=== PATIENT | male | born 1980 | race Caucasian/White ===

== ENCOUNTER 2017-10-18 11:47 | Emergency (ER) | payer BC ==
--- NOTE | 2017-10-18 13:40 | RAD ---
HISTORY: Pneumonia COMPARISONS: None VIEWS: 4: Frontal dual-energy and lateral views of the chest. FINDINGS: CARDIOMEDIASTINAL SILHOUETTE: The cardiomediastinal silhouette is normal. AWA: The awa are normal. PLEURA: The costophrenic angles are sharp. No pleural abnormalities are noted. LUNG PARENCHYMA: There is hyperinflation with flattening of the diaphragm and expansion of the AP diameter of the chest. ABDOMEN: The upper abdomen is clear. There is no subphrenic gas. BONES AND SOFT TISSUES: No bone or soft tissue abnormalities are noted. OTHER: None. IMPRESSION: HYPERINFLATION, WHICH CAN BE SEEN WITH COPD OR REACTIVE AIRWAY DISEASE . NO ACTIVE CARDIOPULMONARY DISEASE.
[2017-10-18 13:47] LABS: ABS Basophils 0.1 10^3/ul (0-0.2); ABS Eosinophils 0.1 10^3/ul (0-0.6); ABS Lymphocytes 1.2 10^3/ul (1.0-4.8); ABS Monocytes 0.6 10^3/ul (0-0.8); ABS Neutrophils 3.2 10^3/ul (1.5-7.7); ABS Nucleated RBC 0 10^3/ul; Eosinophil % 1.6 % (0-6); Hematocrit 44 % (42-52); Hemoglobin 15.3 g/dl (14.0-18.0); Lymphocyte % 23.9 % (25-47); Mean Corpuscular HGB Conc 35 g/dl (31-36); Mean Corpuscular Hemoglobin 30 pg (27-31); Mean Corpuscular Volume 87 fL (80-94); Mean Platelet Volume 7.9 um3 (7.4-10.4); Nucleated Red Blood Cells % 0.1; Platelet Count 326 10^3/ul (150-450); Red Blood Count 5.05 10^6/ul (4.0-5.4); Red Cell Distribution Width 13 % (10.5-15); White Blood Count 5.2 10^3/ul (3.5-10.8)
[2017-10-18 14:02] LABS: EGFR Non-African American 76.9 (>60)
[2017-10-18 14:52] LABS: Urine Appearance Clear; Urine Blood Negative (Negative); Urine Color Yellow; Urine Ketones Negative (Negative); Urine Protein Negative (Negative); Urine Specific Gravity 1.009 (1.010-1.030); Urine Urobilinogen Negative (Negative)
[2017-10-18 15:15] VITALS: BP 141/92
--- NOTE | 2017-10-18 16:05 | ED ---
Shortness of Breath - HPI Summary HPI Summary: Patient is a 37-year-old male presenting to the ED with a chief complaint of shortness of breath. He was seen at [facility] several weeks ago for same, chest x-ray obtained and blood work and he was placed on antibiotics, Augmentin. He was subsequently seen in his primary's office and given 10 days Levaquin for a right middle lobe pneumonia. He states he feels like he is getting worse instead of better. He denies any fevers, sweats, chills. He denies any chest pain or pressure. Denies any nausea, vomiting, diarrhea. He has been otherwise well. He does have a history of anxiety and states he has been under more stress recently with moving back to [place]. He takes no medications. Shortness of breath symptoms are worse with exertion, better with rest. 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 Onset/Duration: Gradual Onset Timing: Constant Current Severity: Mild Dyspnea At: Rest Associated Signs & Symptoms: Negative - Allergy/Home Medications Allergies/Adverse Reactions: Allergies Allergy/AdvReac Type Severity Reaction Status Date / Time No Known Allergies Allergy Verified 10/18/17 11:59 Home Medications: Home Medications Levofloxacin TAB* [Levaquin TAB*] 500 mg PO DAILY 10/18/17 [History Confirmed ] Losartan Potassium [Cozaar] 50 mg PO DAILY 10/18/17 [History Confirmed 10/18/17] PMH/Surg Hx/FS Hx/Imm Hx Previously Healthy: Yes Cardiovascular History: Reports: Hx Hypertension - Immunization History Hx Pertussis Vaccination: No Immunizations Up to Date: Unable to Obtain/Confirm Infectious Disease History: No Infectious Disease History: Denies: Traveled Outside the US in Last 30 Days - Social History Occupation: Employed Full-time Lives: With Family Alcohol Use: None Alcohol Amount: 6 pack daily Hx Substance Use: Yes Substance Use Type: Reports: Marijuana Substance Use Comment - Amount & Last Used: seldom Hx Tobacco Use: Yes Smoking Status (MU): Former Smoker Review of Systems Constitutional: Negative Negative: Fever, Chills, Fatigue, Skin Diaphoresis Eyes: Negative Negative: Palpitations, Chest Pain Positive: Shortness Of Breath. Negative: Cough Negative: Abdominal Pain, Vomiting, Diarrhea, Nausea Genitourinary: Negative Positive: no symptoms reported, see HPI Musculoskeletal: Negative Skin: Negative Positive: Anxious All Other Systems Reviewed And Are Negative: Yes Physical Exam Triage Information Reviewed: Yes Vital Signs On Initial Exam: Initial Vitals Temp Pulse Resp BP Pulse Ox 98.7 F 68 16 126/70 97 10/18/17 11:55 10/18/17 11:55 10/18/17 11:55 10/18/17 11:55 10/18/17 11:55 Vital Signs Reviewed: Yes Appearance: Positive: Well-Appearing, Well-Nourished Skin: Positive: Warm, Skin Color Reflects Adequate Perfusion Head/Face: Positive: Normal Head/Face Inspection Eyes: Positive: EOMI, BENJI, Conjunctiva Clear Neck: Positive: Supple, No Lymphadenopathy Respiratory/Lung Sounds: Positive: Clear to Auscultation, Breath Sounds Present Cardiovascular: Positive: RRR, Pulses are Symmetrical in both Upper and Lower Extremities Musculoskeletal: Positive: Normal, Strength/ROM Intact Neurological: Positive: Speech Normal Psychiatric: Positive: Normal, Affect/Mood Appropriate Diagnostics - Vital Signs Vital Signs Temp Pulse Resp BP Pulse Ox 10/18/17 15:13 98.2 F 58 18 141/92 97 10/18/17 14:00 66 12 98 10/18/17 13:19 68 136/83 10/18/17 13:17 67 22 127/77 100 10/18/17 13:16 64 133/83 99 10/18/17 13:15 64 99 10/18/17 13:14 71 136/83 98 10/18/17 11:55 98.7 F 68 16 126/70 97 - Laboratory Lab Results: Lab Results 10/18/17 10/18/17 10/18/17 Range/Units 13:11 13:35 13:35 WBC 5.2 (3.5-10.8) 10^3/ul RBC 5.05 (4.0-5.4) 10^6/ul Hgb 15.3 (14.0-18.0) g/dl Hct 44 (42-52) % MCV 87 (80-94) fL MCH 30 (27-31) pg MCHC 35 (31-36) g/dl RDW 13 (10.5-15) % Plt Count 326 (150-450) 10^3/ul MPV 7.9 (7.4-10.4) um3 Neut % (Auto) 61.1 (38-83) % Lymph % (Auto) 23.9 L (25-47) % [place] % (Auto) 11.5 H (0-7) % Eos % (Auto) 1.6 (0-6) % Baso % (Auto) 1.9 (0-2) % Absolute Neuts (auto) 3.2 (1.5-7.7) 10^3/ul Absolute Lymphs (auto) 1.2 (1.0-4.8) 10^3/ul Absolute Monos (auto) 0.6 (0-0.8) 10^3/ul Absolute Eos (auto) 0.1 (0-0.6) 10^3/ul Absolute Basos (auto) 0.1 (0-0.2) 10^3/ul Absolute Nucleated RBC 0 10^3/ul Nucleated RBC % 0.1 Sodium 138 L (139-145) mmol/L Potassium 3.8 (3.5-5.0) mmol/L Chloride 105 (101-111) mmol/L Carbon Dioxide 27 (22-32) mmol/L Anion Gap 6 (2-11) mmol/L BUN 12 (6-24) mg/dL Creatinine 1.07 (0.67-1.17) mg/dL Est GFR ( Amer) 98.9 (>60) Est GFR (Non-Af Amer) 76.9 (>60) BUN/Creatinine Ratio 11.2 (8-20) Glucose 116 H (70-100) mg/dL Lactic Acid (0.5-2.0) mmol/L Calcium 9.7 (8.6-10.3) mg/dL Total Bilirubin 0.80 (0.2-1.0) mg/dL AST 16 (13-39) U/L ALT 22 (7-52) U/L Alkaline Phosphatase 63 (34-104) U/L C-Reactive Protein 5.08 H (< 5.00) mg/L Total Protein 7.3 (6.4-8.9) g/dL Albumin 4.3 (3.2-5.2) g/dL Globulin 3.0 (2-4) g/dL Albumin/Globulin Ratio 1.4 (1-3) Urine Color Urine Appearance Urine pH (5-9) Ur Specific [place] (1.010-1.030) Urine Protein (Negative) Urine Ketones (Negative) Urine Blood (Negative) Urine Nitrate (Negative) Urine Bilirubin (Negative) Urine Urobilinogen (Negative) Ur Leukocyte Esterase (Negative) Urine Glucose (Negative) Influenza A (Rapid) Negative (Negative) Influenza B (Rapid) Negative (Negative) 10/18/17 10/18/17 Range/Units 13:35 14:25 WBC (3.5-10.8) 10^3/ul RBC (4.0-5.4) 10^6/ul Hgb (14.0-18.0) g/dl Hct (42-52) % MCV (80-94) fL MCH (27-31) pg MCHC (31-36) g/dl RDW (10.5-15) % Plt Count (150-450) 10^3/ul MPV (7.4-10.4) um3 Neut % (Auto) (38-83) % Lymph % (Auto) (25-47) % [place] % (Auto) (0-7) % Eos % (Auto) (0-6) % Baso % (Auto) (0-2) % Absolute Neuts (auto) (1.5-7.7) 10^3/ul Absolute Lymphs (auto) (1.0-4.8) 10^3/ul Absolute Monos (auto) (0-0.8) 10^3/ul Absolute Eos (auto) (0-0.6) 10^3/ul Absolute Basos (auto) (0-0.2) 10^3/ul Absolute Nucleated RBC 10^3/ul Nucleated RBC % Sodium (139-145) mmol/L Potassium (3.5-5.0) mmol/L Chloride (101-111) mmol/L Carbon Dioxide (22-32) mmol/L Anion Gap (2-11) mmol/L BUN (6-24) mg/dL Creatinine (0.67-1.17) mg/dL Est GFR ( Amer) (>60) Est GFR (Non-Af Amer) (>60) BUN/Creatinine Ratio (8-20) Glucose (70-100) mg/dL Lactic Acid 1.1 (0.5-2.0) mmol/L Calcium (8.6-10.3) mg/dL Total Bilirubin (0.2-1.0) mg/dL AST (13-39) U/L ALT (7-52) U/L Alkaline Phosphatase (34-104) U/L C-Reactive Protein (< 5.00) mg/L Total Protein (6.4-8.9) g/dL Albumin (3.2-5.2) g/dL Globulin (2-4) g/dL Albumin/Globulin Ratio (1-3) Urine Color Yellow Urine Appearance Clear Urine pH 6.0 (5-9) Ur Specific [place] 1.009 L (1.010-1.030) Urine Protein Negative (Negative) Urine Ketones Negative (Negative) Urine Blood Negative (Negative) Urine Nitrate Negative (Negative) Urine Bilirubin Negative (Negative) Urine Urobilinogen Negative (Negative) Ur Leukocyte Esterase Negative (Negative) Urine Glucose Negative (Negative) Influenza A (Rapid) (Negative) Influenza B (Rapid) (Negative) Result Diagrams: 10/18/17 13:35 10/18/17 13:35 Lab Statement: Any lab studies that have been ordered have been reviewed, and results considered in the medical decision making process. Course/Dx - Course Course Of Treatment: The patient is evaluated for shortness of breath. EKG obtained which shows no acute findings. Labs obtained which are unremarkable. Chest x-ray shows: IMPRESSION: HYPERINFLATION, WHICH CAN BE SEEN WITH COPD OR REACTIVE AIRWAY DISEASE . NO ACTIVE. CARDIOPULMONARY DISEASE. I discussed these findings with the patient. He is still concerned over pneumonia. I have showed the patient his x-ray and explained symptoms of pneumonia. He denies any cough with sputum production, fever. He states he believes his shortness of breath may be due to anxiety. I have also discussed asthma symptoms with him. I have prescribed him an albuterol inhaler. He will follow up with Dr. Bernstein to further evaluate the hyperinflation possible reactive airway disease. He has never been diagnosed with such before. He is okay for discharge at this time and has no other concerns. - Diagnoses Differential Diagnosis/HQI/PQRI: Positive: Asthma, Chest Wall Pain Provider Diagnoses: Shortness of breath Discharge - Sign-Out/Discharge Documenting (check all that apply): Discharge/Admit/Transfer - Discharge Plan Condition: Stable Disposition: HOME Patient Education Materials: Asthma (ED), Anxiety (ED) Referrals: Jenn ARENAS,Suki [Primary Care Provider] - Mónica Bernstein MD [Medical Doctor] - Additional Instructions: M not diagnosing E with asthma by have given you information for such Albuterol inhaler 1 puff up to every 4 hours as needed for shortness of breath For any worsening symptoms, he may return to the ED Follow-up with Dr. Bernstein - Billing Disposition and Condition Condition: STABLE Disposition: HOME
== END 2017-10-18 15:13 | disposition home or self-care (01) ==
LOC: ED 11:47
DX: R06.02 Shortness of breath (principal); F41.9 Anxiety disorder, unspecified; Z87.891 Personal history of nicotine dependence
CPT/HCPCS: 36415; 71046; 80053; 81003; 83605; 85025; 86140; 87502; 99282

== ENCOUNTER 2018-01-14 14:34 | Emergency (ER) | payer BC ==
[2018-01-14 14:52] VITALS: BP 134/84
--- NOTE | 2018-01-14 15:30 | UC ---
Skin Complaint HPI - HPI Summary HPI Summary: left foot pain x 2 weeks ? foreign body plantar left foot + pain / swelling, , no redness - History of Current Complaint Chief Complaint: UCLowerExtremity Time Seen by Provider: 01/14/18 14:53 Stated Complaint: LEFT FOOT COMPLAINT Hx Obtained From: Patient Onset/Duration: Gradual Onset, Lasting Weeks - 2, Still Present Timing: Constant Onset Severity: Moderate Current Severity: Moderate Pain Intensity: 0 Location: Discrete - plantar left foot Character: Swelling, Pain, Painful Aggravating Factor(s): Touch Alleviating Factor(s): Nothing Associated Signs & Symptoms: Positive: Tenderness Related History: Foreign Body - ? stepped on rocks 2 weeks ago - Allergy/Home Medications Allergies/Adverse Reactions: Allergies Allergy/AdvReac Type Severity Reaction Status Date / Time No Known Allergies Allergy Verified 01/14/18 14:49 Review of Systems Constitutional: Negative Skin: Negative Eyes: Negative ENT: Negative Respiratory: Negative Cardiovascular: Negative Gastrointestinal: Negative Genitourinary: Negative Motor: Negative Neurovascular: Negative Musculoskeletal: Negative Neurological: Negative Psychological: Negative Is Patient Immunocompromised?: No All Other Systems Reviewed And Are Negative: Yes PMH/Surg Hx/FS Hx/Imm Hx Previously Healthy: Yes - Surgical History Surgical History: None - Family History Known Family History: Negative: Diabetes - Social History Alcohol Use: Daily Alcohol Amount: 6 pack daily Substance Use Type: None Substance Use Comment - Amount & Last Used: seldom Smoking Status (MU): Former Smoker Physical Exam Triage Information Reviewed: Yes Appearance: Well-Appearing, No Pain Distress, Well-Nourished Vital Signs: Initial Vital Signs Temp 98.7 F 01/14/18 14:45 Pulse 77 01/14/18 14:45 Resp 14 01/14/18 14:45 BP 134/84 01/14/18 14:45 Pulse Ox 98 01/14/18 14:45 Vital Signs Reviewed: Yes Eyes: Positive: Conjunctiva Clear ENT: Positive: Normal ENT inspection, Hearing grossly normal, Pharynx normal Neck exam: Normal Neck: Positive: Supple Respiratory: Positive: Chest non-tender, Lungs clear, Normal breath sounds Cardiovascular: Positive: RRR, No Murmur, Pulses Normal Skin: Positive: Other - plantar left foot: small lesion , swellen , tender , no foreign body noted/ found after pealing the calus and the skin Course/Dx - Diagnoses Provider Diagnoses: left plantar foot pain Discharge - Sign-Out/Discharge Documenting (check all that apply): Patient Departure - Discharge Plan Condition: Stable Disposition: HOME Patient Education Materials: Soft Tissue Foreign Body (ED) Referrals: Kiera Trejo MD [Primary Care Provider] - 5 Days Additional Instructions: could not feel / or find any foreign body in your foot at this time please use warm water soaks follow up in 5 days if not better - Billing Disposition and Condition Condition: STABLE Disposition: Home
== END 2018-01-14 15:26 | disposition home or self-care (01) ==
LOC: UCCORT 14:34
DX: M79.672 Pain in left foot (principal); Z87.891 Personal history of nicotine dependence
CPT/HCPCS: 99211; G0463

== ENCOUNTER 2018-06-04 12:36 | Emergency (ER) | payer BC ==
[2018-06-04] MEDS ORDERED: NS 0.9% 1000 ML* 1,000 ML IV ONE (13:05)
[2018-06-04] MEDS ORDERED: Ondansetron INJ* 2 MG/ML VIAL IV ONE (13:05)
[2018-06-04] MEDS ORDERED: Ketorolac INJ* 30 MG/ML 1 ML VIAL IV PUSH ONE (13:05)
--- NOTE | 2018-06-04 13:05 | ED ---
Back Pain - HPI Summary HPI Summary: A 38 y/o presents to the ED c/o back pain radiating to his right flank. Currently, the patient is still experiencing the pain reaching 5/10 in severity , at its worst 7/10 in severity. In the ED room, the patient has a pulse of 85 BPM, O2 saturation of 96%, and blood pressure of 148/98. As per triage, "right flank pain radiating into RUQ. denies N/V/D/constipation/problems urinating. currently on abx course for lymes. no history of kidney stones/infections". According to the patient, the pain initially started in his back. The back pain was throbbing and intermittent. Now, the pain is radiating to his right flank. He noted that the pain worsens with position and movement. Additionally symptoms include appetite changes, denies any burning or blood in urine. PMHx of Lyme Disease (currently treated with Doxycycline), denies cholecystectomy and history of thrombosis. Patient does fly often. He just got back from [place]. - History of Current Complaint Chief Complaint: EDFlankPain Stated Complaint: RT FLANK PAIN Time Seen by Provider: 06/04/18 12:48 Hx Obtained From: Patient Onset/Duration: Sudden Onset, Lasting Days, Still Present, Worse Since Onset/Duration: Started Days Ago, Still Present Timing: Intermittent Severity Initially: Moderate Severity Currently: Moderate Pain Intensity: 5 Pain Scale Used: 0-10 Numeric Character: Throbbing Aggravating Symptom(s): Movement Alleviating Symptom(s): Nothing Associated Signs And Symptoms: Positive: Flank Pain - Allergies/Home Medications Allergies/Adverse Reactions: Allergies Allergy/AdvReac Type Severity Reaction Status Date / Time No Known Allergies Allergy Verified 06/04/18 12:41 Home Medications: Home Medications Doxycycline Monohydrate 100 mg PO BID 06/04/18 [History Confirmed 06/04/18] PMH/Surg Hx/FS Hx/Imm Hx Cardiovascular History: Reports: Hx Hypertension Respiratory History: Denies: Hx Asthma - Surgical History Surgery Procedure, Year, and Place: NO PRIOR SURGERIES NOTED. Infectious Disease History: No Infectious Disease History: Reports: Traveled Outside the [place] in Last 30 Days - [place] - Family History Known Family History: Negative: Diabetes - Social History Alcohol Use: Daily Alcohol Amount: 6 pack daily Hx Substance Use: Yes Substance Use Type: Reports: None Substance Use Comment - Amount & Last Used: seldom Hx Tobacco Use: Yes Smoking Status (MU): Former Smoker Review of Systems Negative: Fever Positive: flank pain. Negative: burning, hematuria Positive: Other - POSITIVE: Back pain All Other Systems Reviewed And Are Negative: Yes Physical Exam - Summary Physical Exam Summary: GENERAL: Patient is a well-developed and nourished male who is lying comfortable in the stretcher. Patient is not in any acute respiratory distress. HEAD AND FACE: Normocephalic EYES: PERRLA, EOMI x 2. EARS: Hearing grossly intact. MOUTH: Oropharynx within normal limits. NECK: Supple, trachea is midline, no adenopathy, no JVD, no carotid bruit. CHEST: Symmetric, no tenderness at palpation LUNGS: Clear to auscultation bilaterally. No wheezing or crackles. CVS: Regular rate and rhythm, S1 and S2 present, no murmurs or gallops appreciated. ABDOMEN: Soft, mildly tender to palpation in RUQ. Bowel sounds are normal. No abdominal abnormal pulsations. EXTREMITIES: Full ROM in all major joints, no edema, no cyanosis or clubbing. NEURO: Alert and oriented x 3. No acute neurological deficits. Speech is normal and follows commands. SKIN: Dry and warm Triage Information Reviewed: Yes Vital Signs On Initial Exam: Initial Vitals Temp Pulse Resp BP Pulse Ox 98 F 78 16 158/101 97 06/04/18 12:38 06/04/18 12:38 06/04/18 12:38 06/04/18 12:38 06/04/18 12:38 Vital Signs Reviewed: Yes Diagnostics - Vital Signs Vital Signs Temp Pulse Resp BP Pulse Ox 06/04/18 12:38 98 F 78 16 158/101 97 - Laboratory Result Diagrams: 06/04/18 13:23 06/04/18 13:23 Lab Statement: Any lab studies that have been ordered have been reviewed, and results considered in the medical decision making process. - Ultrasound No standard instances Ultrasound Interpretation Completed By: Radiologist - GALLBLADDER US: NO SONOGRAPHIC EVIDENCE OF CHOLELITHIASIS OR ACUTE INFLAMMATORY CHANGES OF THE GALLBLADDER. BOWEL GAS SHADOWING THE COMMON BILE DUCT PREVENTS DETERMINATION OF THE COMMON BILE DUCT DIAMETER. ED PHYSICIAN REVIEWED THIS RADIOLOGY REPORT. Re-Evaluation - Re-Evaluation First Eval Re-Evaluation Time: 16:21 Change: Improved Comment: PATIENT STATED THAT TORADOL HELPED BUT STILL FEELING THE SAME DULL PAIN. Back Pain Course/Dx - Course Course Of Treatment: A 38 y/o presents to the ED c/o back pain radiating to his right flank. Currently, the patient is still experiencing the pain reaching 5/ 10 in severity, at its worst 7/10 in severity. In the ED room, the patient has a pulse of 85 BPM, O2 saturation of 96%, and blood pressure of 148/98. According to the patient, the pain initially started in his back. The back pain was throbbing and intermittent. Now, the pain is radiating to his right flank. He noted that the pain worsens with position and movement. Additionally symptoms include appetite changes, denies any burning or blood in urine. PMHx of Lyme Disease (currently treated with Doxycycline), denies cholecystectomy and history of thrombosis. Patient does fly often. He just got back from [place]. Physical examination revealed mildly tender to palpation in RUQ. A Gallbladder US revealed no sonographic evidence of cholelithiasis or acute inflammatory changes of the gallbladder. Bowel gas shadowing the common bile duct prevents determination of the common bile duct diameter. Hematology and urinalysis were done. Labs were umremarkable. In the ED course, the patient received Maaloz, Toradol, Xylocaine, Zofran, Protonix, and IV fluids. During re- evaluation, the patient noted that the Toradol helps but still experiencing the dull flank pain. Upon a second evaluation, the GI cocktail did make a difference. The patient was told if the pain comes back and becomes unbearable to come back to [facility] for CAT scan. At this point, the CAT scan is unnecessary due to the patient's hematology, urinalysis, and gallbladder ultrasound were within normal limits. Patient will be discharged with a diagnosis of flank pain. Patient is to follow up with primary care provider in 1-3 days. Patient is to return to ED for any new or worsening symptoms. Patient is agreeable with this plan. - Diagnoses Provider Diagnoses: Flank pain Discharge - Sign-Out/Discharge Documenting (check all that apply): Patient Departure - DISCHARGE - Discharge Plan Condition: Stable Disposition: HOME Patient Education Materials: Flank Pain (ED) Referrals: Kiera Trejo MD [Primary Care Provider] - 3 Days Additional Instructions: FOLLOW UP WITH PRIMARY CARE PROVIDER IN 1-3 DAYS. RETURN TO ED FOR ANY NEW OR WORSENING SYMPTOMS. - Billing Disposition and Condition Condition: STABLE Disposition: Home - Attestation Statements Document Initiated by Nakita: Yes Documenting Scribe: Chicho Lopez Provider For Whom Nakita is Documenting (Include Credential): Rashida Mercer MD Scribe Attestation: Chicho Dhaliwal, scribed for Rashida Mercer MD on 06/04/18 at 1809. Scribe Documentation Reviewed: Yes Provider Attestation: The documentation as recorded by the Chicho toro accurately reflects the service I personally performed and the decisions made by , Rashida Mercer MD Status of Scribe Document: Viewed
[2018-06-04 13:31] LABS: ABS Basophils 0 10^3/ul (0-0.2); ABS Eosinophils 0.1 10^3/ul (0-0.6); ABS Lymphocytes 1.1 10^3/ul (1.0-4.8); ABS Monocytes 0.7 10^3/ul (0-0.8); ABS Neutrophils 4.1 10^3/ul (1.5-7.7); ABS Nucleated RBC 0 10^3/ul; Eosinophil % 1.5 %; Hematocrit 47 % (42-52); Hemoglobin 16.4 g/dl (14.0-18.0); Lymphocyte % 17.8 %; Mean Corpuscular HGB Conc 35 g/dl (31-36); Mean Corpuscular Hemoglobin 30 pg (27-31); Mean Corpuscular Volume 88 fL (80-94); Nucleated Red Blood Cells % 0.1; Platelet Count 277 10^3/ul (150-450); Red Cell Distribution Width 14 % (10.5-15); White Blood Count 6.1 10^3/ul (3.5-10.8)
[2018-06-04 13:32] LABS: Urine Appearance Clear; Urine Blood Negative (Negative); Urine Color Yellow; Urine Ketones Negative (Negative); Urine Protein Negative (Negative); Urine Specific Gravity 1.011 (1.010-1.030); Urine Urobilinogen Negative (Negative)
[2018-06-04 13:47] LABS: EGFR Non-African American 98.5 (>60)
[2018-06-04] MEDS ORDERED: Al Hydrox/Mg Hydrox/Simet LIQ* 30 ML UDC PO ONE (16:23)
[2018-06-04] MEDS ORDERED: Lidocaine 2% VISCOUS* 15 ML UDC PO ONE (16:23)
[2018-06-04] MEDS ORDERED: Pantoprazole IV* 40 MG IV ONE (16:25)
[2018-06-04 16:58] VITALS: BP 168/95
== END 2018-06-04 17:08 | disposition home or self-care (01) ==
LOC: ED 12:36
DX: M54.9 Dorsalgia, unspecified (principal); R10.11 Right upper quadrant pain; Z87.891 Personal history of nicotine dependence
CPT/HCPCS: 36415; 76705; 80053; 81003; 82140; 82150; 83605; 83690; 85025; 85379; 86140; 96374; 96375; 99284; A9270-GY; J1885; J2405

== ENCOUNTER 2018-07-26 13:07 | Emergency (ER) | payer BC ==
--- OUTSIDE RECORDS SUMMARY | 2018-07-26 13:30 | XMS REPORT | Continuity of Care Document ---
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 Nicolasa Silver NP Primary Care Physician Unavailable Payers Type Date Identification Numbers Payment Provider Subscriber Policy Number: [id number] BS JEANNE Macho Adhikari PayID: [id number] [address] [address] [place] [address] Advance Directives Description No Information Available Problems Date Description Provider Status Onset: 06/08/2012 Difficulty breathing Kaylie Kothari PA Active Onset: 06/08/2012 Chronic sinusitis Kaylie Kothari PA Active Onset: 06/08/2012 Deviated nasal septum Kaylie Kothari PA Active Onset: 06/08/2012 Malaise and fatigue Kaylie Kothari PA Active Family History Date Family Member(s) Problem(s) Comments Father Age is Unknown Father Unknown Mother 67 Mother No Current Problems First Brother 37 First Brother Unknown First Sister 35 First Sister Unknown Second Sister 37 Second Sister Unknown Third Sister 32 Third Sister Unknown Social History Type Date Description Comments Sex Unknown Tobacco Use Start: Unknown End: Unknown Former Cigarette Smoker ETOH Use Daily Use Of Alcohol Recreational Drug Use Denies Drug Use Allergies, Adverse Reactions, Alerts Description No Known Drug Allergies Medications Medication Date Status Form Strength Qnty SIG Indications Ordering Provider Losartan Active Tablets 100mg 1 by Unknown Potassium 00 mouth every day Doxycycline Active Capsules 100mg take one Unknown Hyclate 00 twice a day Ubiquinol Active Capsules 100mg 2 Unknown 00 No Active 06/08/20 Hx Unknown Medications - 06/07/20 18 Paxil Hx 10mg Unknown 00 - 06/08/20 12 Hydroxyzine Hx Unknown - 06/08/20 12 Immunizations Description No Information Available Vital Signs Date Vital Result Comment 06/29/2018 11:11am Weight 206.00 lb Height 68 inches 5'8" BMI (Body Mass Index) 31.3 kg/m2 BP Systolic 149 mmHg BP Diastolic 94 mmHg Heart Rate 75 /min O2 % BldC Oximetry 96 % Body Temperature 97.4 F Pain Level 0 06/07/2018 9:54am Weight 203.00 lb Height 68 inches 5'8" BMI (Body Mass Index) 30.9 kg/m2 BP Systolic 129 mmHg BP Diastolic 86 mmHg Heart Rate 71 /min O2 % BldC Oximetry 97 % Body Temperature 97.5 F Pain Level 1 07/15/2012 11:28am Weight 199.00 lb Height 67.75 inches 5'7.75" BMI (Body Mass Index) 30.5 kg/m2 BP Systolic 124 mmHg BP Diastolic 80 mmHg Heart Rate 65 /min O2 % BldC Oximetry 100 % Body Temperature 97.3 F 06/08/2012 1:58pm Weight 202.00 lb Height 67.75 inches 5'7.75" BMI (Body Mass Index) 30.9 kg/m2 BP Systolic 120 mmHg Heart Rate 74 /min O2 % BldC Oximetry 97 % Body Temperature 98.3 F 11/07/2009 9:57am Weight 213.38 lb Height 67.75 inches 5'7.75" BMI (Body Mass Index) 32.7 kg/m2 BP Systolic 140 mmHg BP Diastolic 88 mmHg Heart Rate 73 /min O2 % BldC Oximetry 97 % Results Test Date Facility Test Result H/L Range Note Laboratory test 06/07/2018 [facility] SEE RESULT [address] [place] [address] 1 SEE RESULT BELOW Name: MACHO ADHIKARI : [address]: Brad Polanco MD Acct: [id number] Unit: [id number] AGE: 38 Location: [facility] Re06/07/18 SEX: M Status: REG REF SPEC: [id number] CHELE: 06/07/[address]: Brad Polanco MD REQ: [id number] RECD: 06/07/18 STATUS: SOUT _ ORDERED: LEVEL 4 COMMENTS: [id number] FINAL DIAGNOSIS Tongue, biopsy: -- Benign squamous mucosa and lymphoid tissue with vascular ectasia. -- No evidence of neoplasia. CLINICAL HISTORY No history given GROSS DESCRIPTION The specimen is received in formalin labeled, Lesion on Tongue, and consists of a 0.6 by up to 0.3 x 0.1 cm silva-white irregular soft tissue fragment which is submitted entirely in one cassette. Signed by and Reported on: Nivia Lion MD 06/09/18 1049 END OF REPORT DEPARTMENT OF PATHOLOGY, [address], [place], [place] [address] Deangelo Dickens M.D. Director [facility] # [id number] Procedures Date Code Description Status 06/07/2018 32243 Biopsy Tongue;Posterior One-Third Completed 08/10/2012 18888 Sleep Stage 4 Or More Cpap Titra Completed 06/29/2012 55466 Sleep Staging 4Or More Para Completed 06/08/2012 06823 Fiberoptic Laryngoscopy,Diag. Completed Encounters Type Date Location Provider Dx Diagnosis Office Visit 06/07/2018 Main Office Brad Polanco M.D. K13.79 Other lesions of 10:00a oral mucosa K14.9 Disease of tongue, unspecified Office Visit 07/15/2012 11:30a Main Office Saniya, 327.23 Obstructive Sleep TORREY Lott Apnea Adult [facility] Pediatric Office Visit 06/08/2012 2:00p Main Office Saniya, 786.09 Dyspnea & TORREY Lott Respiratory Abnormalities Other 473.9 Sinusitis Chronic Unspec 470 Deviated Nasal Septum 780.79 Malaise And Fatigue Other Office Visit 11/07/2009 10:00a Main Office Pipo Flynn MD 780.53 Apnea - W/ Hypersomnia, Unspecified Plan of Treatment No Information Available
--- NOTE | 2018-07-26 14:43 | ED ---
Abdominal Pain/Male - HPI Summary HPI Summary: This patient is a 38 year old male presenting to the emergency department with a cc of RUQ that is radiating into his back for the last month. It was intermittent now it has become more constant. He has been seen for this on June 04 but now he is having nausea with the pain. The gallbladder US at the point was negative. The patient reports the pain 5/10 in severity. He is on omeprazole for GERD. The patient is tearful on exam and reports a significant amount of stress in his life recently. There is a significant amount of cancer in his family, he has had night diaphoresis. He denies recent weight loss. He saw GI last week as a f/u, but he was not having sx at this time. He is a daily drinker. - History of Current Complaint Chief Complaint: EDAbdPain Stated Complaint: RIGHT FLANK PAIN Time Seen by Provider: 07/26/18 14:16 Hx Obtained From: Patient Onset/Duration: Lasting Hours, Lasting Weeks, Still Present, Worse Since Timing: Constant Severity Initially: Mild Severity Currently: Moderate Pain Intensity: 5 Pain Scale Used: 0-10 Numeric Location: Discrete At: RUQ Radiates: Yes Radiates to: Back Associated Signs And Symptoms: Positive: Diaphoresis, Nausea - Allergies/Home Medications Allergies/Adverse Reactions: Allergies Allergy/AdvReac Type Severity Reaction Status Date / Time sertraline [From Zoloft] Allergy Palpitation Verified 07/26/18 13:14 s Home Medications: Home Medications Cholecalciferol TAB* [Vitamin D TAB*] 4,000 units PO DAILY 07/26/18 [History Confirmed 07/26/18] Elderberry Fruit and Flower [Black Elderberry 575 mg] 1 cap PO BID 07/26/18 [ History Confirmed 07/26/18] Milk Thistle 1,500 mg PO TID 07/26/18 [History Confirmed 07/26/18] Omeprazole 40 mg PO DAILY 07/26/18 [History Confirmed 07/26/18] Ubiquinol [Active-Q] 200 mg PO DAILY 07/26/18 [History Confirmed 07/26/18] PMH/Surg Hx/FS Hx/Imm Hx Cardiovascular History: Reports: Hx Hypertension Respiratory History: Denies: Hx Asthma, Hx Pneumonia, Hx Pulmonary Embolism - Surgical History Surgery Procedure, Year, and Place: NO PRIOR SURGERIES NOTED. Infectious Disease History: No Infectious Disease History: Denies: Traveled Outside the [place] in Last 30 Days - Family History Known Family History: Negative: Diabetes, Respiratory Disease - Social History Alcohol Use: Daily Alcohol Amount: 6 pack daily Hx Substance Use: Yes Substance Use Type: Reports: None Substance Use Comment - Amount & Last Used: seldom Hx Tobacco Use: Yes Smoking Status (MU): Former Smoker Review of Systems Positive: Skin Diaphoresis. Negative: Fever Positive: Abdominal Pain, Nausea All Other Systems Reviewed And Are Negative: Yes Physical Exam - Summary Physical Exam Summary: GENERAL: Patient is a well-developed and nourished M who is lying comfortable in the stretcher. Patient is not in any acute respiratory distress. HEAD AND FACE: Normocephalic EYES: PERRLA, EOMI x 2. EARS: Hearing grossly intact. MOUTH: Oropharynx within normal limits. NECK: Supple, trachea is midline, no adenopathy, no JVD, no carotid bruit. CHEST: Symmetric, no tenderness at palpation LUNGS: Clear to auscultation bilaterally. No wheezing or crackles. CVS: Regular rate and rhythm, S1 and S2 present, no murmurs or gallops appreciated. ABDOMEN: Soft, mildly TTP in epigastrium. Bowel sounds are normal. No abdominal abnormal pulsations. EXTREMITIES: Full ROM in all major joints, no edema, no cyanosis or clubbing. NEURO: Alert and oriented x 3. No acute neurological deficits. Speech is normal and follows commands. SKIN: Dry and warm Neuro exam extended: Cranial nerves II-XII grossly intact, no dysmetria finger to nose, nml heel to cooper Triage Information Reviewed: Yes Vital Signs On Initial Exam: Initial Vitals Temp Pulse Resp BP Pulse Ox 99.1 F 70 18 159/110 99 07/26/18 13:12 07/26/18 13:12 07/26/18 13:12 07/26/18 13:12 07/26/18 13:12 Vital Signs Reviewed: Yes Diagnostics - Vital Signs Vital Signs Temp Pulse Resp BP Pulse Ox 07/26/18 13:12 99.1 F 70 18 159/110 99 - Laboratory Result Diagrams: 07/26/18 15:26 07/26/18 15:26 Lab Statement: Any lab studies that have been ordered have been reviewed, and results considered in the medical decision making process. - CT CT ABD/Pelvis CT Interpretation Completed By: Radiologist Summary of CT Findings: Mild urinary bladder wall thickening. Etiology infectious/inflammatory. Correlation with UA. ED physician has reviewed this report. Abdominal Pain Fem Course/Dx - Course Assessment/Plan: Follow up with your primary care physician in 1-3 days. RETURN TO THE EMERGENCY DEPARTMENT FOR CHANGING OR WORSENING SYMPTOMS. - Diagnoses Provider Diagnoses: Bladder wall thickening, Abdominal pain Discharge - Sign-Out/Discharge Documenting (check all that apply): Patient Departure Patient Received Moderate/Deep Sedation with Procedure: No - Discharge Plan Condition: Stable Disposition: HOME Patient Education Materials: Abdominal Pain (ED) Referrals: Kiera Trejo MD [Primary Care Provider] - Jayjay Cyr MD [Medical Doctor] - 1 Day Additional Instructions: Follow up with your primary care physician in 1-3 days. RETURN TO THE EMERGENCY DEPARTMENT FOR CHANGING OR WORSENING SYMPTOMS. - Billing Disposition and Condition Condition: STABLE Disposition: Home - Attestation Statements Document Initiated by Scribe: Yes Documenting Scribe: Milton Holland Provider For Whom Scribe is Documenting (Include Credential): Rashida Mercer MD Scribe Attestation: Milton Dhaliwal scribed for Rashida Mercer MD on 07/27/18 at 1054. Scribe Documentation Reviewed: Yes Provider Attestation: The documentation as recorded by the Milton toro accurately reflects the service I personally performed and the decisions made by Rashida lombardo MD Status of Scribe Document: Viewed
[2018-07-26] MEDS ORDERED: Ketorolac INJ* 30 MG/ML 1 ML VIAL IV PUSH ONE (15:13)
[2018-07-26] MEDS ORDERED: NS 0.9% 1000 ML** 2,000 ML IV ONE (15:14)
[2018-07-26] MEDS ORDERED: Ondansetron INJ* 2 MG/ML VIAL IV ONE (15:14)
[2018-07-26 15:33] LABS: ABS Basophils 0 10^3/ul (0-0.2); ABS Eosinophils 0.1 10^3/ul (0-0.6); ABS Lymphocytes 1.1 10^3/ul (1.0-4.8); ABS Monocytes 0.5 10^3/ul (0-0.8); ABS Neutrophils 3.4 10^3/ul (1.5-7.7); ABS Nucleated RBC 0 10^3/ul; Eosinophil % 1.6 %; Hematocrit 43 % (42-52); Hemoglobin 14.9 g/dl (14.0-18.0); Lymphocyte % 21.1 %; Mean Corpuscular HGB Conc 35 g/dl (31-36); Mean Corpuscular Hemoglobin 30 pg (27-31); Mean Corpuscular Volume 88 fL (80-94); Mean Platelet Volume 8.3 fL (7.4-10.4); Nucleated Red Blood Cells % 0.1; Platelet Count 238 10^3/ul (150-450); Red Blood Count 4.93 10^6/ul (4.00-5.40); Red Cell Distribution Width 13 % (10.5-15)
[2018-07-26 15:51] LABS: Urine Appearance Clear; Urine Bilirubin Negative (Negative); Urine Blood Negative (Negative); Urine Color Yellow; Urine Glucose Negative (Negative); Urine Ketones 1+ (Negative); Urine Nitrite Negative (Negative); Urine Protein Negative (Negative); Urine Specific Gravity 1.016 (1.010-1.030); Urine Urobilinogen Negative (Negative)
[2018-07-26 15:55] LABS: Albumin 4.7 g/dL (3.2-5.2); Albumin/Globulin Ratio 1.6 (1-3); BUN/Creatinine Ratio 12.8 (8-20); C Reactive Protein 2.87 mg/L (<8.01); Calcium 9.8 mg/dL (8.6-10.3); EGFR African American 119.2 (>60); EGFR Non-African American 98.5 (>60); Potassium 4.1 mmol/L (3.5-5.0); Total Bilirubin 0.9 mg/dL (0.2-1.0); Total Protein 7.7 g/dL (6.4-8.9)
[2018-07-26] MEDS ORDERED: Iohexol 300* (CONTRAST) 10 ML SDV IV ONE (17:54)
[2018-07-26 19:12] VITALS: BP 167/106
== END 2018-07-26 19:12 | disposition home or self-care (01) ==
LOC: ED 13:07
DX: N32.89 Other specified disorders of bladder (principal); R10.11 Right upper quadrant pain; Z87.891 Personal history of nicotine dependence; R11.0 Nausea
CPT/HCPCS: 36415; 74177; 80053; 81003; 82150; 83605; 83690; 85025; 85379; 86140; 96374; 96375; 99283; J1885; J2405; Q9967

== ENCOUNTER 2019-05-27 10:55 | Emergency (ER) | payer BC | END 2019-05-27 11:23 | disposition left against medical advice (07) | LOC: UCCORT 10:55 | DX: Z53.21 Procedure and treatment not carried out due to patient leaving prior to being seen by health care provider (principal) ==

== ENCOUNTER 2019-05-27 11:18 | Emergency (ER) | payer BC ==
[2019-05-27 12:37] VITALS: BP 135/82
[2019-05-27] MEDS ORDERED: Lidocaine 2% PF * 5 ML VIAL INJ ONE (12:47)
--- NOTE | 2019-05-27 13:58 | UC ---
Shoulder Pain HPI - HPI Summary HPI Summary: Pt presents with sudden onset of worsening tenderness, erythema, and swelling to known cyst in left axilla. Pt has been applying warm pack and trying to "pop " abscess at home and states in the last three days it has worsened. Pt states it is painful to move left arm. - History of Current Complaint Chief Complaint: UCSkin Stated Complaint: SKIN COMPLAINT Time Seen by Provider: 05/27/19 12:41 Hx Obtained From: Patient Onset/Duration: Sudden Onset, Lasting Days, Still Present, Worse Since - onset Timing: Constant Severity Initially: Mild Severity Currently: Moderate Location Of Pain: Is Discrete @ - left axilla Pain Intensity: 0 Pain Scale Used: 0-10 Numeric Character: Dull, Aching Aggravating Factor(s): Movement Alleviating Factor(s): Rest Associated Signs And Symptoms: Positive: Swelling, Redness Related History: Dominant Hand Right - Risk Factors Non-Orthopedic Risk Factor: Negative DVT Risk Factors: Negative Septic Arthritis Risk Factor: Negative - Allergies/Home Medications Allergies/Adverse Reactions: Allergies Allergy/AdvReac Type Severity Reaction Status Date / Time sertraline [From Zoloft] Allergy Palpitation Verified 05/27/19 12:34 s Home Medications: Home Medications Lactobacillus Combo No.10 [Probiotic] 1 each PO DAILY 05/27/19 [History Confirmed 05/27/19] PMH/Surg Hx/FS Hx/Imm Hx Previously Healthy: Yes - Surgical History Surgical History: None Surgery Procedure, Year, and Place: NO PRIOR SURGERIES NOTED. - Family History Known Family History: Negative: Diabetes, Respiratory Disease - Social History Occupation: Employed Full-time Lives: With Family Alcohol Use: Occasionally Alcohol Amount: 6 pack daily Substance Use Type: Marijuana Substance Use Comment - Amount & Last Used: twice yearly Smoking Status (MU): Former Smoker Have You Smoked in the Last Year: No When Did the Patient Quit Smoking/Using Tobacco: 2017 Review of Systems All Other Systems Reviewed And Are Negative: Yes Constitutional: Positive: Negative Skin: Positive: Other - swelling, erythema, tender lump let axilla Eyes: Positive: Negative ENT: Positive: Negative Respiratory: Positive: Negative Cardiovascular: Positive: Negative Gastrointestinal: Positive: Negative Genitourinary: Positive: Negative Motor: Positive: Decreased ROM - painful ROm of left arm due to swelling in axilla Neurovascular: Positive: Negative Musculoskeletal: Positive: Edema - left axilla Neurological: Positive: Negative Psychological: Positive: Negative Is Patient Immunocompromised?: No Physical Exam Triage Information Reviewed: Yes Appearance: Pain Distress Vital Signs: Initial Vital Signs Temp 99.1 F 05/27/19 12:32 Pulse 63 05/27/19 12:32 Resp 15 05/27/19 12:32 BP 135/82 05/27/19 12:32 Pulse Ox 100 05/27/19 12:32 Vital Signs Reviewed: Yes Eye Exam: Normal ENT Exam: Normal ENT: Positive: Hearing grossly normal Neck exam: Normal Respiratory Exam: Normal Respiratory: Positive: No respiratory distress Musculoskeletal: Positive: Edema @ - left axilla, mild erythema, Neurological Exam: Normal Psychological Exam: Normal Skin Exam: Other - moveable tender, mass left axilla, indurated abscess Procedures - Incision and Drainage Left Axilla Site: left axilla Anesthesia: Local Instrument(s): Scalpel - 11 blade Packing: Other - none. Wound irrgated with 400 cc normal saline Shoulder Course/Dx - Course Course Of Treatment: Pt tolerated I&D well. no c/o pain during procedure. moderate amount of purulent drainage from wound. No packing placed. dressing applied. Instructions for dressing change done by RN, Kaci Grider. Pt given instruction about worsening infection and f/u. Pt verbalized understanding and agreed to plan of care. - Differential Dx/Diagnosis Differential Diagnosis/HQI/PQRI: Other - abscess Provider Diagnosis: Abscess of axilla, left, Encounter for incision and drainage procedure Discharge ED - Sign-Out/Discharge Documenting (check all that apply): Patient Departure All imaging exams completed and their final reports reviewed: No Studies - Discharge Plan Condition: Stable Disposition: HOME Prescriptions: Cephalexin CAP* [Keflex 500 CAP*] 500 mg PO QID #40 cap Patient Education Materials: Abscess (ED), Abscess Incision and Drainage (DC) Referrals: Kiera Trejo MD [Primary Care Provider] - If Needed Additional Instructions: Please monitor for any worsening symptoms that include but are not limited to: erythema, fever, chills, swelling or tenderness - Billing Disposition and Condition Condition: STABLE Disposition: Home
== END 2019-05-27 13:31 | disposition home or self-care (01) ==
LOC: UCCORT 11:18
DX: L02.412 Cutaneous abscess of left axilla (principal); Z48.817 Encounter for surgical aftercare following surgery on the skin and subcutaneous tissue; Z88.8 Allergy status to other drugs, medicaments and biological substances; Z87.891 Personal history of nicotine dependence
CPT/HCPCS: 10060; 87070; 87205; 87640; 87641; 99212; G0463